=== PATIENT | male | born 1975 | race African-American/Black ===

== ENCOUNTER 2024-05-30 23:23 | Emergency (ER) | payer SELFPAY ==
[~2024-05-30] VITALS: Ht 180.3 cm; Wt 90.0 kg
[2024-05-30 23:35] VITALS: BP 167/107; PULSE 107; RESP 20; TEMP 98.2; O2SAT 100
== END 2024-05-31 01:17 | disposition left against medical advice (07) ==
LOC: ER 23:23
DX: S80.212A Abrasion, left knee, initial encounter (principal); M25.562 Pain in left knee; F41.9 Anxiety disorder, unspecified; F32.9 Major depressive disorder, single episode, unspecified; W19.XXXA Unspecified fall, initial encounter; Y93.89 Activity, other specified; Y92.89 Other specified places as the place of occurrence of the external cause; Y99.8 Other external cause status
CPT/HCPCS: 99283